=== PATIENT | male | born 1995 | race Caucasian/White ===

== ENCOUNTER 2017-10-08 23:55 | Emergency (ER) | payer MEDICAID ==
--- NOTE | 2017-10-09 01:19 | EDPHY ---
H & P Time Seen by Provider: 10/09/17 00:14 HPI/ROS: This 22-year-old male presents to the emergency department tonight because he is concerned that he contracted syphilis from a sexual encounter that occurred 2 -4 months ago. He developed a rash that looked like acne on his shoulders and arms. He has had acne in the past however he also had a circular lesion on his left inner thigh and a red area on the shaft of his penis. He listened to a medical pod cast and surmised that he has syphilis. He felt he should get checked tonight to make sure. He has no open wounds, no ulcerated lesions, no penile discharge, no fever, no chills, nor sore throat. He has not been in a hot tub or other body of water in over a year. He has not had any sexual encounters with anyone else since the "one night stand". He did not use a condom during this encounter. He also wants to have his ears cleaned. He states he has to have his ears cleaned about once a year. He does not have a primary care provider. He does have a psychiatrist that prescribes his Vyvanse and risperidone for his bipolar and ADHD. REVIEW OF SYSTEMS: Constitutional: No fever, no chills. Eyes: No discharge. ENT: No sore throat. Respiratory: No cough, no shortness of breath. Cardiac: No chest pain, no palpitations. Gastrointestinal: No abdominal pain, no vomiting. Genitourinary: No hematuria. Musculoskeletal: No back pain. Skin: See HPI. Neurological: No headache. Past Medical/Surgical History: PMH: Bipolar, ADHD, Palpitations PSH: Right knee surgery FH: Mother has Hepatitis C contracted through a blood transfusion during a surgery in college NKDA Meds: Vyvanse and risperidone Social: Denies tobacco products, rare ETOH, No THC50 or other drugs No primary care provider Smoking Status: Never smoked Physical Exam: General Appearance: Alert, no distress. Eyes: Pupils equal and round no pallor or injection. ENT, Mouth: Mucous membranes are moist. EAC occluded with cerumen bilaterally. Respiratory: There are no retractions, lungs are clear to auscultation. Cardiovascular: Regular rate and rhythm. Gastrointestinal: Abdomen is soft and nontender, no masses, bowel sounds normal. Neurological: Awake and alert, sensory and motor exams grossly normal. Skin: Warm and dry, there is a mild follicular type rash on the dorsum of his arms. There are a few erythematous circular lesions on the inner aspect of his thighs with a raised border. The dorsum of the penile shaft is mildly erythematous without open wounds or ulcerated lesions. There is no penile discharge. There is no scrotal pain. Testes descended bilaterally. Musculoskeletal: Neck is supple nontender. Extremities are symmetrical, full range of motion. Psychiatric: Patient is oriented X 3, there is no agitation. DIFFERENTIAL DIAGNOSIS: After history and physical exam differential diagnosis was considered for but not limited to: sexually transmitted infection, tinea corporis Constitutional: Initial Vital Signs Temperature (C) 98.6 F 10/09/17 00:26 Heart Rate 71 10/09/17 00:26 Respiratory Rate 16 10/09/17 00:26 Blood Pressure 163/76 H 10/09/17 00:26 O2 Sat (%) 97 10/09/17 00:26 O2 Delivery Mode Room Air Allergies/Adverse Reactions: lactose [Lactose] Allergy (Verified 10/09/17 00:31) Home Medications: Medication Instructions Recorded Risperidone 4mg 08/19/09 Vyvanse 70mg 08/19/09 Ketoconazole 1 applic TP BID #1 cream..g. 10/09/17 Medical Decision Making ED Course/Re-evaluation: The patient was seen and examined. Vital signs reviewed. His blood pressure was elevated. This was rechecked before discharge and was improved but still in the 130s systolic. He was advised to obtain a primary care provider for this and other follow-up issues. His blood was drawn for the syphilis test as directed by the lab. This will not be resulted for another 3 days. His urine which was a dirty catch was sent to the lab as well for testing for GC and Chlamydia. This will also not be resulted for 3 days. The patient was advised that he must give us a working phone number to contact him with results. He is to obtain a primary care provider and set up a follow-up appointment without fail. He was also given a prescription for ketoconazole for what I believe is a tinea corporis rash. I have advised him to take a picture of the rash before starting the cream and show it to his primary care provider at follow-up. He was also advised that if he believes he was exposed to syphilis he should consider getting tested for HIV, hepatitis, etc. He was also advised to use condoms for every sexual encounter. His ear canals were irrigated by the renal dialysis technician. Re-examined showed clear tympanic membranes. All his questions were answered to the best my ability at this time. He agrees to make a follow-up appointment with a primary care provider. Departure - Departure Disposition: Home, Routine, Self-Care Condition: Good Instructions: Sexually Transmitted Diseases (ED), Condom Use (ED), Tinea Corporis (ED), Cerumen Impaction (ED) Additional Instructions: You have requested testing for syphilis and we have also sent your urine to be test for Conorrhea and Chlamydia. These tests will not be back until Tuesday of this coming week. MAKE SURE WE HAVE A WORKING PHONE NUMBER TO CONTACT YOU WITH THE RESULTS. You need to establish care with a primary care provider and make an initial appointment regardless of the outcome of these tests. You may want to consider testing for other sexually transmitted infections such as HIV and Hepatitis. You should ALWAYS use a condom during sex to reduce the chance of obtaining a sexually transmitted infection. Take a picture of your rashes before starting the cream I have prescribed in case your rash is "ringworm." Then you can show the pictures to your primary care provider. Referrals: Uche Edmond DO [Medical Doctor] - As per Instructions Prescriptions: Ketoconazole 1 applic TP BID #1 cream..g.
[2017-10-09] MEDS ORDERED: CARBAMIDE PEROXIDE 15 ML OTIC.BTL ONE (01:20)
[2017-10-09 01:46] VITALS: BP 137/83
== END 2017-10-09 02:10 | disposition home or self-care (01) ==
LOC: CED 23:55
PROC: 3E1B78Z Irrigation of Ear using Irrigating Substance, Via Natural or Artificial Opening (ICD-10-PCS; principal; 2017-10-08)
DX: R21 Rash and other nonspecific skin eruption (principal); H61.23 Impacted cerumen, bilateral; F31.9 Bipolar disorder, unspecified; F90.9 Attention-deficit hyperactivity disorder, unspecified type

== ENCOUNTER 2017-10-14 18:44 | Emergency (ER) | payer MEDICAID ==
[2017-10-14 19:02] VITALS: BP 137/92
--- NOTE | 2017-10-14 19:50 | EDPHY ---
H & P Time Seen by Provider: 10/14/17 18:53 HPI/ROS: CHIEF COMPLAINT: Headache and shortness of breath. HISTORY OF PRESENT ILLNESS: Patient states that for approximately 2-3 weeks he has had a dull constant headache. He has not tried anything for it. He also states that over roughly the same period of time he has had intermittent episodes of fatigue and nauseous. States it has been getting a little bit worse. Today at work at [employer] he had a"fit". When he had this fit he felt tired he felt short of breath he was seeing spots he felt his arms go numb and then felt the blood yi back to them. He is not sure what is going on and came in for evaluation. He was seen in this emergency department about 5-6 days ago for concerns of sexually transmitted infection. His syphilis and gonorrhea test are negative. He is being treated for tinea cruris. REVIEW OF SYSTEMS: Constitutional: No fever, no chills. Eyes: No discharge. ENT: No sore throat. Cardiovascular: No chest pain, no palpitations. Respiratory: Per HPI Gastrointestinal: No abdominal pain, no vomiting. Genitourinary: No dysuria. Musculoskeletal: No back pain. Skin: Some discrete raised lesions to torso. Fungal rash per prior visit. Neurological: No headache. General Appearance: Alert, no distress. Eyes: Pupils equal and round no pallor or injection. ENT, Mouth: Mucous membranes moist. Respiratory: There are no retractions, lungs are clear to auscultation. Cardiovascular: Regular rate and rhythm. Gastrointestinal: Abdomen is soft and nontender, no masses, bowel sounds normal. Neurological: Cranial nerves intact, normal strength, sensation, reflexes all 4 extremities. Skin: Warm and dry, multiple discrete raised reddish lesions consistent with molluscum contagiosum on the chest. Musculoskeletal: Neck is supple nontender. Extremities are symmetrical, full range of motion, no edema. Psychiatric: Patient is oriented X 3, there is no agitation. Medical/surgical history: Bipolar, attention deficit hyperactivity disorder. Right knee surgery. Social history: Nonsmoker, no history of IV drug use. No tobacco. Rare EtOH. Smoking Status: Never smoked Constitutional: Initial Vital Signs Temperature (C) 36.7 C 10/14/17 18:55 Heart Rate 79 10/14/17 18:55 Respiratory Rate 16 10/14/17 18:55 Blood Pressure 137/92 H 10/14/17 18:55 O2 Sat (%) 98 10/14/17 18:55 Allergies/Adverse Reactions: lactose [Lactose] Allergy (Verified 10/14/17 18:54) Home Medications: Medication Instructions Recorded Risperidone 4mg 08/19/09 Vyvanse 70mg 08/19/09 Medical Decision Making Differential Diagnosis: Differential diagnosis includes but is not limited to migraine, tension headache , bronchitis, panic attack, hyperventilation syndrome, molluscum contagiosum, tinea cruris. After evaluation I suspect symptoms that brought patient in today are related to likely a panic attack with hyperventilation episode. In the emergency department he is essentially asymptomatic. Discussed the use of [id number] medications for headaches also other common cause of headaches including dehydration, poor sleep, caffeine withdrawal. Patient does have a psychiatrist for his bipolar and attention deficit hyperactivity disorder treatments and will follow up with him as indicated. Return precautions discussed. Stable for discharge. Departure - Departure Disposition: Home, Routine, Self-Care Clinical Impression: Molluscum contagiosum infection Headache Qualifiers: Headache type: unspecified Headache chronicity pattern: unspecified pattern Intractability: not intractable Qualified Code(s): R51 - Headache Condition: Good Instructions: Molluscum Contagiosum (ED) Additional Instructions: Follow-up with her psychiatrist as discussed. Establish a primary care physician. Return to the emergency department if he develops any symptoms that are concerning or significantly worse. Referrals: NONE *PRIMARY CARE P,. [Primary Care Provider] - As per Instructions
== END 2017-10-14 19:55 | disposition home or self-care (01) ==
LOC: CED 18:44
DX: R51 Headache (principal); B08.1 Molluscum contagiosum